=== PATIENT | male | born 1960 | race African-American/Black ===

== ENCOUNTER 2020-02-04 21:32 | Emergency (ER) | payer MEDICARE, MEDICAID ==
[~2020-02-04] VITALS: Ht 180.3 cm; Wt 86.2 kg
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
[2020-02-04 22:04] VITALS: BP 144/88
--- NOTE | 2020-02-04 22:21 | Diagnostic Imaging Report ---
EXAM: CT Head Without Intravenous Contrast CLINICAL HISTORY: AMS TECHNIQUE: Axial computed tomography images of the head/brain without intravenous contrast. CTDI is 53 mGy and DLP is 947 mGy-cm. One or more of the following dose reduction techniques were used: automated exposure control, adjustment of the mA and/or kV according to patient size, use of iterative reconstruction technique. COMPARISON: No relevant prior studies available. FINDINGS: Brain: No evidence of mass-effect or intracranial hemorrhage. No significant white matter disease. Ventricles: Unremarkable. No ventriculomegaly. Bones/joints: Unremarkable. No acute fracture. Soft tissues: Unremarkable. Sinuses: Unremarkable as visualized. No acute sinusitis. Mastoid air cells: Unremarkable as visualized. No mastoid effusion. Other findings: Motion degraded study. IMPRESSION: No evidence of acute intracranial abnormality.
[2020-02-04 22:26] LABS: APPEARANCE,URINE CLEAR; BILIRUBIN, URINE NEGATIVE (NEGATIVE); COLOR,URINE YELLOW; GLUCOSE, URINE (UA) NEGATIVE (NEGATIVE); KETONES,URINE NEGATIVE (NEGATIVE); LEUKOCYTE ESTERASE ,URINE 1+ (NEGATIVE); NITRITE,URINE NEGATIVE (NEGATIVE); PH,URINE 5 (4.5-8.0); PROTEIN,URINE NEGATIVE (NEGATIVE); UROBILINOGEN,URINE 4 MG/DL (0.0-1.0)
[2020-02-05 00:05] VITALS: BP 132/80
--- NOTE | 2020-02-05 13:05 | Diagnostic Imaging Report ---
Procedure: XRAY Chest 1v Reason for study: Reason For Exam: SOB Comparison films: None. FINDINGS: A single one view chest is obtained. Vascularity is normal. Minimal haziness left lung base likely mild atelectasis. Cardiac and mediastinal silhouette are within normal limits. CP angles are sharp. The bony thorax appear unremarkable. IMPRESSION: Minimal hazy left basilar atelectasis.
--- NOTE | 2020-02-05 13:06 | Diagnostic Imaging Report ---
EXAM: X-RAY XRAY Elbow Min 3v R CLINICAL HISTORY: Elbow pain. COMPARISON: None FINDINGS: Total of 3 views of the right elbow were obtained. Alignment is anatomic. There is no fracture, bony lesions or erosions. Joint spaces are unremarkable. Osteophyte formation noted at the triceps insertion and also in the region of the capitellum. No acute soft tissue abnormality noted. IMPRESSION: MILD DEGENERATIVE CHANGES. NO ACUTE BONY ABNORMALITY.
== END 2020-02-05 00:05 | disposition home or self-care (01) ==
LOC: EDBD 21:32 → EMR 21:44
DX: T50.901A Poisoning by unspecified drugs, medicaments and biological substances, accidental (unintentional), initial encounter (principal); S50.311A Abrasion of right elbow, initial encounter; Y92.9 Unspecified place or not applicable; X58.XXXA Exposure to other specified factors, initial encounter
CPT/HCPCS: 36415; 70450; 71045; 73080; 80307; 81001; 84484; 99284; G0480